=== PATIENT | female | born 1935 | race Caucasian/White ===

== ENCOUNTER → 2016-09-28 | Outpatient (CLI) | payer MEDICARE, BC | END | disposition home or self-care (01) | LOC: RAD 10:04 | PROVIDERS: ATTEND Family Medicine | DX: K40.20 Bilateral inguinal hernia, without obstruction or gangrene, not specified as recurrent (principal) | CPT/HCPCS: 74176 ==

== ENCOUNTER → 2017-03-09 | Outpatient (CLI) | payer MEDICARE, BC ==
[~2017-03-09] MED LIST: BUDE10.22 INH; [UNRECOGNIZED DRUG - REMARK] NAS
== END | disposition home or self-care (01) ==
LOC: STAR 12:53
PROVIDERS: ATTEND Thoracic Surgery (Cardiothoracic Vascular Surgery)
DX: Z01.818 Encounter for other preprocedural examination (principal); R94.31 Abnormal electrocardiogram [ECG] [EKG]; I51.7 Cardiomegaly
CPT/HCPCS: 93005

== ENCOUNTER 2017-03-17 05:58 | Day surgery (SDC) | payer MEDICARE, BC ==
[2017-03-09 13:45] VITALS: BP 118/77
[~2017-03-17] VITALS: Ht 162.6 cm; Wt 67.9 kg
[2017-03-17] MEDS ORDERED: LACTATED RINGERS 1,000 ML IV SCH ×2 (06:31→08:33)
[2017-03-17] MEDS ORDERED: ASPI-621 PO (06:32)
[2017-03-17] MEDS ORDERED: EPINEPHRINE 1 MG/ML, 1ML ONE (06:49)
[2017-03-17] MEDS ORDERED: BUPIVACAINE/PF 0.5% ONE (06:49)
[2017-03-17] MEDS ORDERED: FENTANYL PF 100 MCG/2ML ONE ×3 (06:59→08:32)
[2017-03-17] MEDS ORDERED: LIDOCAINE 1%, 2ML SQ PRN (07:00)
[2017-03-17] MEDS ORDERED: BUPIVACAINE/PF-EPI 0.5% 1:200K IM ONE (07:24)
[2017-03-17] MEDS ORDERED: PROPOFOL 10 MG/ML, 20ML ONE (07:30)
[2017-03-17] MEDS ORDERED: ONDANSETRON 2MG/ML, 2ML ONE (07:30)
[2017-03-17] MEDS ORDERED: OXYcodone 5 MG/5 ML ORAL.SOL UDC PO PRN (07:30)
[2017-03-17] MEDS ORDERED: ACETAMINOPHEN 325 MG TABLET PO PRN (07:30)
[2017-03-17] MEDS ORDERED: EPHEDRINE 50 MG/ML, 1ML ONE (07:30)
[2017-03-17] MEDS ORDERED: SUCCINYLCHOLINE 20 MG/ML, 10ML ONE (07:30)
[2017-03-17] MEDS ORDERED: DEXAMETHASONE 4 MG/ML, 1ML ONE (07:30)
[2017-03-17] MEDS ORDERED: ESMOLOL 100 MG/10 ML ONE (07:30)
[2017-03-17] MEDS ORDERED: CEFAZOLIN 1,000 MG ONE (07:30)
[2017-03-17] MEDS ORDERED: ROCURONIUM 10 MG/ML ONE (07:30)
[2017-03-17] MEDS ORDERED: ONDANSETRON 2MG/ML, 2ML IVPush PRN ×2 (07:30→09:00)
[2017-03-17] MEDS ORDERED: HYDROmorphone 2 MG/ML, 1ML ONE (08:32)
[2017-03-17] MEDS: FENTANYL PF 100 MCG/2ML IV PRN ×2 (08:42→09:17)
[2017-03-17] MEDS: HYDROmorphone 1 MG/ML, 1ML IV PRN ×3 (08:44→09:17)
[2017-03-17] MEDS ORDERED: OXYcodone 5 MG/5 ML ORAL.SOL UDC ONE (08:45)
[2017-03-17] MEDS ORDERED: ACETAMINOPHEN 650 MG/20.3 ML UDC ONE (08:45)
[2017-03-17] MEDS ORDERED: morphine SULFATE 10 MG/ML, 1ML IVPush PRN (09:00)
[2017-03-17] MEDS ORDERED: TEMPLATE NON-FORMULARY MED. (Budesonide/Formoterol Fumarate (Symbicort 80-4.5 Mcg Inhaler) INH SCH (09:00)
[2017-03-17] MEDS ORDERED: ALBUTEROL SULFATE 2.5 MG/3 ML NPPB PRN (09:00)
[2017-03-17] MEDS ORDERED: HYDROcodone/APAP 5/325 TABLET PO PRN (09:00)
[2017-03-17] MEDS ORDERED: ALBUTEROL/IPRATROPIUM 2.5MG/0.5MG, 3 ML NPPB PRN (09:00)
== END 2017-03-17 13:00 ==
LOC: OUT 05:58
PROVIDERS: ATTEND Thoracic Surgery (Cardiothoracic Vascular Surgery)
DX: K40.20 Bilateral inguinal hernia, without obstruction or gangrene, not specified as recurrent (principal); J45.909 Unspecified asthma, uncomplicated; Z90.710 Acquired absence of both cervix and uterus; Z98.42 Cataract extraction status, left eye; Z98.41 Cataract extraction status, right eye; Z88.0 Allergy status to penicillin; Z88.1 Allergy status to other antibiotic agents; Z85.828 Personal history of other malignant neoplasm of skin; Z98.51 Tubal ligation status; Z98.890 Other specified postprocedural states
CPT/HCPCS: 49650; C1727; C1781; J0171; J0330; J0690; J1100; J1170; J2405; J2704; J3010; J3490; J7120